=== PATIENT | male | born 1960 | race American Indian/Alaskan Native ===

== ENCOUNTER 2017-05-12 20:01 | Emergency (ER) | payer OTHER ==
[2017-05-12 20:01] VITALS: BMI 40.1
[2017-05-12 20:11] VITALS: BP 125/79; PULSE 103; RESP 16; TEMP 96.7; O2SAT 99
[2017-05-12] MEDS ORDERED: Lidocaine 1% Inj (20ml) ONE (20:21)
--- NOTE | 2017-05-12 20:28 | ED PDOC ---
Upper Extremity Pain/Injury Time Seen by Provider: 05/12/17 20:09 Chief Complaint (Nursing): Lower Extremity Problem/Injury Chief Complaint (Provider): Finger laceration History Per: Patient History/Exam Limitations: no limitations Onset/Duration Of Symptoms: Hrs (x 12) Current Symptoms Are (Timing): Still Present Additional Complaint(s): Freedom Guy is a 57 y/o male who presents to the ED for evaluation of a laceration to left finger, sustained approximately 12 hours ago. States that while cutting vegetables at work, he accidentally sliced the finger. Bleeding controlled with bandage. No weakness, numbness, or tingling. PMD: [facility] Past Medical History Reviewed: Historical Data, Nursing Documentation, Vital Signs Vital Signs: Last Vital Signs Temp 96.7 F L 05/12/17 20:10 Pulse 103 H 05/12/17 20:10 Resp 16 05/12/17 20:10 BP 125/79 05/12/17 20:10 Pulse Ox 99 05/12/17 20:10 - Medical History PMH: Diabetes, HIV, HTN, Hypercholesterolemia, Pneumonia Denies: Chronic Kidney Disease - Surgical History Surgical History: No Surg Hx - Family History Family History: States: Unknown Family Hx - Social History Current smoker - smoking cessation education provided: Yes Alcohol: None Drugs: Denies - Home Medications Home Medications: Ambulatory Orders Medication Instructions Recorded Efavirenz/Emtricitabine/Teno 600 mg PO DAILY 02/27/16 [Atripla 600 MG-200 MG-300 MG] Lisinopril [Zestril] 20 mg PO DAILY 02/27/16 Rosuvastatin Calcium [Crestor] 10 mg PO DAILY 02/27/16 amLODIPine [Norvasc] 5 mg PO DAILY 02/27/16 metFORMIN [glucOPHAGE] 500 mg PO DAILY 02/27/16 traZODone [Desyrel] 100 mg PO DAILY 02/27/16 Levofloxacin [Levaquin] 500 mg PO DAILY #0 tablet 03/01/16 Cyclobenzaprine [Flexeril] 5 mg PO TID PRN #15 tab 10/03/16 Cephalexin [Keflex] 500 mg PO BID #14 capsule 05/12/17 - Allergies Allergies/Adverse Reactions: Allergies Allergy/AdvReac Type Severity Reaction Status Date / Time No Known Allergies Allergy Verified 02/27/16 09:00 Review of Systems ROS Statement: Except As Marked, All Systems Reviewed And Found Negative Skin: Positive for: Lesions (Laceration to left index finger) Physical Exam - Reviewed Nursing Documentation Reviewed: Yes Vital Signs Reviewed: Yes - Physical Exam Appears: Positive for: Well, Non-toxic, No Acute Distress Head Exam: Positive for: ATRAUMATIC, NORMAL INSPECTION, NORMOCEPHALIC Skin: Positive for: Normal Color, Warm, Dry Eye Exam: Positive for: Normal appearance Neck: Positive for: Normal Extremity: Positive for: Normal ROM, Other (Laceration to left 2nd digit) Neurologic/Psych: Positive for: Alert, Oriented. Negative for: Motor/Sensory Deficits - ECG O2 Sat by Pulse Oximetry: 99 (RA) Pulse Ox Interpretation: Normal Medical Decision Making Medical Decision Making: Time: 20:19 Initial Plan: --Ordered Lidocaine 1% for laceration repair Scribe Attestation: Documented by Raine Shaffer, acting as a scribe for Melodie Ga PA-C Provider Scribe Attestation: All medical record entries made by the Scribe were at my direction and personally dictated by me. I have reviewed the chart and agree that the record accurately reflects my personal performance of the history, physical exam, medical decision making, and the department course for this patient. I have also personally directed, reviewed, and agree with the discharge instructions and disposition. Procedures - Laceration/Wound Repair Finger, index - Left Wound Length (cm): 2.5 Wound's Depth, Shape: superficial Wound Explored: no foreign body removed Anesthesia: 1% Lidocaine Wound Debrided: minimal Wound Repaired With: Sutures Suture Size/Type: 5:0 Layer Closure?: No Wound Complexity: Simple Disposition - Clinical Impression Clinical Impression: Finger laceration, Tetanus toxoid vaccination administered at current visit - Disposition Referrals: [facility] [Outside] Disposition Time: 21:10 Condition: STABLE Prescriptions: Cephalexin [Keflex] 500 mg PO BID #14 capsule Instructions: Care For Your Stitches (ED) Forms: [employer] (Thai)
[2017-05-12] MEDS: Lidocaine 1% (10 ml) Inj INFIL STA (20:31)
== END 2017-05-12 21:25 | disposition home or self-care (01) ==
LOC: H.ER 20:01
DX: S61.012A Laceration without foreign body of left thumb without damage to nail, initial encounter (principal); W26.0XXA Contact with knife, initial encounter; Y99.0 Civilian activity done for income or pay